=== PATIENT | female | born 1955 | race Caucasian/White ===

== ENCOUNTER 2023-12-17 09:28 | Outpatient (CLI) | payer MEDICARE ==
[2023-12-17] MEDS ORDERED: Iopamidol 370 76% 150 ML VIAL FS ONE (11:21)
== END 2023-12-17 09:29 | disposition home or self-care (01) ==
LOC: CSHCT 09:28
PROVIDERS: ATTEND Thoracic Surgery (Cardiothoracic Vascular Surgery)
DX: I73.9 Peripheral vascular disease, unspecified (principal); I74.5 Embolism and thrombosis of iliac artery; I70.8 Atherosclerosis of other arteries; I77.1 Stricture of artery
CPT/HCPCS: 75635; 82565